=== PATIENT | male | born 1965 | race African-American/Black ===

== ENCOUNTER 2017-08-08 07:27 | Observation (INO) ==
[2017-08-08] MEDS ORDERED: NS 1,000 ML IV ONE (07:38)
--- NOTE | 2017-08-08 07:45 | EKG Report ---
Test Performed on : 08/08/2017 07:27:58 AM Test Reason : AMS Blood Pressure : / mmHG Vent. Rate : 057 BPM Atrial Rate : 057 BPM P-R Int : 182 ms QRS Dur : 082 ms QT Int : 426 ms P-R-T Axes : 066 -06 023 degrees QTc Int : 414 ms Sinus bradycardia. Otherwise normal ECG When compared with ECG of 16-APR-2012 18:51, Vent. rate has decreased BY 28 BPM Unconfirmed Result
[2017-08-08 07:53] LABS: MANUAL DIFF NEEDED? NO
--- NOTE | 2017-08-08 07:57 | Diag Imaging Result Doc PS360 ---
EXAM: CT HEAD W/O CONTRAST HISTORY: AMS TECHNIQUE: CT of the head without contrast with dose reduction (clarity.) COMMENT: There is no evidence of bleed, mass effect, abnormal extra-axial fluid collection, hydrocephalus or acute bony abnormality. The visualized paranasal sinuses are clear. There is persistence of the cava and septum pellucidum. IMPRESSION: No evidence of acute intracranial disease. Electronically signed by Onesimo Barrera 08/08/2017 7:55 AM
[2017-08-08 08:00] LABS: BASO% 0.2 % (0.0-0.8); EOS# 0.09 X1000 (0.0-0.7); EOS% 1.5 % (0.0-10.0); HEMATOCRIT 41.4 % (42.0-52.0); HEMOGLOBIN 13.2 g/dL (14.0-18.0); LYMPH# 1.88 X1000 (1.2-3.4); LYMPH% 31.3 % (20.5-51.1); MCH 26.9 PG (27-31); MCHC 31.9 g/dL (33-37); MCV 84.3 FL (81-99); MONO# 0.38 X1000 (0.11-0.59); MONO% 6.3 % (1.7-9.3); MPV 10.6 FL (7.4-10.4); NEUT% 60.7 % (42.2-75.2); PLT 181 X1000 (130-400); RBC 4.91 XMIL (4.7-6.1)
--- NOTE | 2017-08-08 08:01 | PROVIDER DOCUMENTATION ---
HPI-Neurological Disorder - General Chief Complaint: Stroke-Like Symptoms Stated Complaint: WEAKNESS ONSET THIS MORNING Time Seen by Provider: 08/08/17 07:37 Source: patient, family Allergies/Adverse Reactions: Patient Allergies Allergy/AdvReac Type Severity Reaction Status Date / Time No Known Allergies Allergy Verified 08/08/17 07:34 Home Medications: Home Medication List Medication Instructions Recorded Confirmed Last Taken Type NK [No Home Medications] 08/08/17 08/08/17 Unknown History - History of Present Illness-Neuro Nature of Presenting Problem: Pt was brought into ER by his because pt could not stand up from his bed and felt to floor when he was getting up to be ready to go to work. Reports R leg weakness and it caused fall. Also reports R sided ESTRADA and R side blurry vision. Denies CP/LOC/slurry speech/confusion/RUE weakness. Pt's reports that he needed assistance to walk to the car. Pt was last seen normal by his was 24 hours ago - because they work different shifts. Pt reports he was normal till 9PM last night when he went to bed. reports he has h/o HTN, but he does not take his BOP meds. Headache Location: reports: temporal, parietal (on R side) Onset/Duration: reports: last night Timing: reports: still present Context: reports: other (See above) Approximate time patient was last seen normal?: 07:00 (24 hours ago) Character of Altered Mental Status: reports: agitated, other (Pt has some attitude when interviewed) Any recent trauma/injury?: reports: none Character of Deficits: reports: new weakness, vision problem/glaucoma, decreased ability to stand, decreased ability to walk, falling. denies: altered sensation, impaired speech, impaired swallowing New weakness or altered sensation location:: reports: RLE. denies: RUE, LUE, right facial, left facial, ascending Cognitive Baseline: alert, oriented x3 Gait Baseline: walks without assistance Associated Symptoms: reports: trouble walking, vision changes, weakness (RLe). denies: fainting, dizziness, confusion, chest pain, nausea, numbness in legs/ feet, paresthesia, seizures, slurred speech Similar Symptoms Previously?: No Recently seen or treated by another doctor?: No Review of Systems - Adult - REVIEW OF SYSTEMS - ADULT Constitutional: reports: no symptoms reported. denies: chills, fever, fatique Eyes: reports: see HPI, blurred vision Ears, Nose, Mouth & Throat: reports: no symptoms reported Cardiovascular: reports: no symptoms reported. denies: chest pain Respiratory: reports: no symptoms reported. denies: chronic cough, cough, shortness of breath Gastrointestinal: reports: no symptoms reported. denies: nausea, vomiting Genitourinary: reports: no symptoms reported Musculoskeletal: reports: no symptoms reported Integumentary: reports: no symptoms reported Neurological: reports: see HPI, headache/migraines, loss of balance. denies: ataxia, dizziness/vertigo, numbness, paresthesia, seizure, slurred speech, syncope, tremors Psychiatric: reports: no symptoms reported Endocrine: reports: no symptoms reported Hematologic/Lymphatic: reports: no symptoms reported Allergic/Immunologic: reports: no symptoms reported All Other Systems: Reviewed and Negative Past History - Adult - PAST MEDICAL HISTORY-ADULT Review of Records: reports: Old Records Reviewed, Nursing Assessment Review, Medications Reviewed, Social history reviewed & non-contributory. Major Childhood Illnesses: reports: denies history Cardiovascular: reports: denies history Respiratory: reports: denies history Gastrointestinal: reports: denies history Obstetrical/Gynecological: reports: denies history Genitourinary: reports: denies history Musculoskeletal: reports: denies history Neurological: reports: denies history Endocrine/Immune: reports: denies history Other Conditions: reports: denies history - PRIOR SURGERIES/PROCEDURES Surgical/Procedure History: reports: reviewed, not pertinent - PRIOR HOSPITALIZATIONS Prior Hospitalizations: reports: for other non-related - IMMUNIZATION STATUS Childhood Immunizations: See Nurse Assessment Flu Vaccine: See Nurse Assessment - FAMILY HISTORY Family History: reviewed, not pertinent - SOCIAL HISTORY Smoking: denies Substance Use: none/never, alcohol Physical Exam- Neurological - Physical Exam-Neuro Initial Vital Signs Reviewed: Yes General Appearance: alert, no apparent distress, other (Agitated) Eye Exam: bilateral eye: PERRL (B/l pinpoint pupils), EOMI HENMT: normocephalic/atraumatic, moist mucous membranes Head Injury: no evidence of injury. negative: contusions, ecchymosis, raccoon eyes, swelling Neck: non-tender, full range of motion, supple Respiratory: chest non-tender, lungs clear, normal breath sounds, no pleuratic chest pain, no respiratory distress, no accessory muscle use Cardiovascular: normal peripheral pulses, regular rate, rhythm, no edema, no gallop, no JVD Abdominal Exam: normal bowel sounds, non tender, soft, no organomegaly, no pulsatile mass. negative: distended, guarding, rigid, McBurney's point tenderness Extremity: normal range of motion, non-tender, normal gait, normal inspection patient appointment coordinator Exam: normal hearing, normal speech, PERRL, abnormal eye position Coordination/Gait: normal finger to nose, negative Romberg's sign, abnormal gait . negative: ABN nose to finger (R), ABN nose to finger (L) Motor/Sensory: no sensory deficit, no pronator drift, weak motor strength RLE. negative: negative Babinski's sign, positive Babinski's sign, pronator drift (R) , pronator drift (L), sensory deficit, weak motor strength RUE, weak motor strength LUE, weak motor strength LLE Neurologic: grossly normal, motor weakness (See above, pt can lift his R leg out of bed slowly, but is much slower and weaker then L side. No RUE weakness noticed.) Integumentary: normal color, normal turgor, warm/dry Psych/Mental Status: normal mood/affect, normal thought content, normal thought process, oriented x 3 - Glascow Coma Scale Best Eye Response: (4) open spontaneously Best Verbal Response: (5) oriented Best Motor Response: (6) obeys commands Total Glascow Score: 15 Progress - PLAN OF CARE/RESULTS Progress/Plan/Lab Results: Vital Signs - 8 hr 08/08/17 07:29 Pulse Rate 58 L Respiratory Rate 16 Blood Pressure 154/099 O2 Sat by Pulse Oximetry 98 Laboratory Results - last 24 hr 08/08/17 08/08/17 08/08/17 07:35 07:35 07:35 WBC RBC Hgb Hct MCV MCH MCHC RDW Std Deviation Plt Count MPV Immature Gran % (Auto) Neut % (Auto) Lymph % (Auto) Hardin % (Auto) Eos % (Auto) Baso % (Auto) Immature Gran # (Auto) Neut # (Auto) Lymph # (Auto) Hardin # (Auto) Eos # (Auto) Baso # (Auto) PT INR APTT (Factor Assay) Sodium 135 L Potassium 3.8 Chloride 101 Carbon Dioxide 25 Anion Gap 9 BUN 10 Creatinine 0.9 Estimated GFR/1.73 m2 > 60 BUN/Creatinine Ratio 11 Glucose 113 H Calculated Osmolality 270 Calcium 9.1 Magnesium 1.8 Total Bilirubin 0.30 AST 13 ALT 13 Alkaline Phosphatase 70 Creatine Kinase 200 Troponin T < 0.010 Total Protein 7.3 Albumin 3.9 Globulin 3.0 Albumin/Globulin Ratio 1.0 Plasma/Serum Ethyl Alc 08/08/17 08/08/17 07:35 07:35 WBC 6.01 RBC 4.91 Hgb 13.2 L Hct 41.4 L MCV 84.3 MCH 26.9 L MCHC 31.9 L RDW Std Deviation 12.4 Plt Count 181 MPV 10.6 H Immature Gran % (Auto) 0.0 Neut % (Auto) 60.7 Lymph % (Auto) 31.3 Hardin % (Auto) 6.3 Eos % (Auto) 1.5 Baso % (Auto) 0.2 Immature Gran # (Auto) 0.00 Neut # (Auto) 3.65 Lymph # (Auto) 1.88 Hardin # (Auto) 0.38 Eos # (Auto) 0.09 Baso # (Auto) 0.01 PT 13.4 INR 0.95 APTT (Factor Assay) 31.1 Sodium Potassium Chloride Carbon Dioxide Anion Gap BUN Creatinine Estimated GFR/1.73 m2 BUN/Creatinine Ratio Glucose Calculated Osmolality Calcium Magnesium Total Bilirubin AST ALT Alkaline Phosphatase Creatine Kinase Troponin T Total Protein Albumin Globulin Albumin/Globulin Ratio Plasma/Serum Ethyl Alc Orders Category Date Time Status Cardiac Monitoring DIRECTED Care 08/08/17 07:38 Active Finger Stick Blood Sugar (ED) DIRECTED Care 08/08/17 07:38 Active Saline Loc NOW Care 08/08/17 07:38 Active CHEST-1 VIEW [RAD] Stat Exams 08/08/17 07:[address] HEAD W/O CONTRAST [CT] Stat Exams 08/08/17 07:37 Completed ALCOHOL BLOOD Stat Lab 08/08/17 07:35 Completed CBC WITH ELECTRONIC DIFF [HEME] Stat Lab 08/08/17 07:35 Completed CK PROFILE [SP CHEM] Stat Lab 08/08/17 07:35 Completed COMPREHENSIVE METABOLIC PANEL [CHEM] Stat Lab 08/08/17 07:35 Completed MAGNESIUM [CHEM] Stat Lab 08/08/17 07:[address]IME WITH INR [address] [COAG] Stat Lab 08/08/17 07:[address] [COAG] Stat Lab 08/08/17 07:35 Completed TROPONIN T Stat Lab 08/08/17 07:[address] W/POSS RFLX CULT [URINALYSIS] Stat Lab 08/08/17 07:38 Uncollected URINE DRUG SCREEN PL Stat Lab 08/08/17 07:38 Uncollected 0.9% Sodium Chloride Inj [Ns] 1,000 ml Med 08/08/17 07:38 Active IV 150 mls/hr Hydrocodone/APAP 7.5 mg/325 mg [Derry-7.5] Med 08/08/17 08:12 Discontinued 1 each PO NOW ONE Ondansetron [Zofran] Med 08/08/17 08:13 Discontinued 4 mg IV NOW ONE Pulse Oximetry Stat Oth 08/08/17 07:38 Active EKG [EKG] Stat Ther 08/08/17 07:38 Draft Result Diagrams: 08/08/17 07:35 08/08/17 07:35 - REASSESSMENT Reassessment #1 Time Reassessed: 08:13 Status: other (Pt was re-evaluated. He crossed his RLE on top of his LLE when I walked into his room. Pt can move b/l LE equally. It sounded to me that the weakness resolved. Pt c/o ESTRADA. PO Derry given. Noticed JC=800d/90s w/o intervention.) - EKG 1 EKG Interpretation (*Must complete 3 of following elements*): Normal Rate: 57 Haslet: normal QRS: normal HI Interval: normal ST Wave: normal - XRAY 1 XRAY Study: Chest Impression: Normal - CT/MRI 1 CT Study: Head Impression: Normal - CONSULTS/PCP/HOSPITALIST Notification #1 *Consult/PCP/Hospitalist*: Dr. Daniels Time Discussed: 09:37 Consult Disposition: Will see in ED, Admit Departure - Departure Date of Disposition Decision: 08/08/17 Time of Disposition Decision: 09:37 DIAGNOSIS: CVA (cerebral vascular accident), Headache Disposition: ADMITTED INPATIENT 09 Certified Medical Emergency: Emergent Condition: Stable Referrals and Follow-Ups: Harvey Anderson MD [Primary Care Provider] - Discharge Education: Migraine Headache, [id number] - Critical Care Note This patient required my direct & personal management of CC.: No Attestation - Physician/ RIN Attestation Patient care was provided by Advanced Practice Provider:: No The physician spent face to face time with patient:: Yes Advanced Practice Provider documentation review:: Supervising physician onsite and consulted in the evaluation and care of this patient. The physician did have a face to face encounter with the patient.
--- NOTE | 2017-08-08 08:02 | Diag Imaging Result Doc PS360 ---
EXAM: CHEST-1 VIEW INDICATION: AMS TECHNIQUE: One view COMPARISON: 10/15/2016 FINDINGS: The lungs are grossly clear. There is no discrete pleural fluid collection or pneumothorax. The cardiomediastinal silhouette and central vasculature are grossly unremarkable accounting for magnification from AP technique. IMPRESSION: No evidence of acute pathology by plain radiograph. Electronically signed by Jason Augustin 08/08/2017 8:00 AM
[2017-08-08] MEDS ORDERED: NORCO-7.5 PO ONE (08:12)
[2017-08-08 08:13] LABS: INR 0.95 (0.86-1.15); PROTIME 13.4 Seconds (12.1-15.5)
[2017-08-08] MEDS ORDERED: ZOFRAN IV ONE (08:13)
[2017-08-08 08:14] LABS: PTT PL 31.1 Seconds (22.6-43.9)
[2017-08-08 08:20] LABS: AGAP 9; ALBUMIN 3.9 g/dL (3.5-5.0); ALKALINE PHOSPHATASE 70 U/L (32-122); BUN 10 mg/dL (8-22); CALCIUM 9.1 mg/dL (8.8-10.2); CHLORIDE 101 mmol/L (98-107); CK PROFILE 200 U/L (24-204); COSMO 270; GOT 13 U/L (10-34); GPT 13 U/L (10-44); MAGNESIUM 1.8 mg/dL (1.5-2.7); POTASSIUM 3.8 mmol/L (3.5-5.1); SODIUM 135 mmol/L (136-145); TCO2 25 mmol/L (25-35); TOTAL PROTEIN 7.3 g/dL (6.3-8.3)
--- NOTE | 2017-08-08 09:30 | ED EKG INTERP ---
This chart was entered by Emani Ford Scribe, acting as scribe for Tara Youssef MD. EKG Interpretation - EKG Time of EKG reading by physician:: 07:27 EKG Read and Signed by:: Tara Youssef EKG Interpretation (*Must complete 3 of following elements*): Abnormal Rate: 57 Rhythm: sinus bradycardia Comments: otherwise normal ECG Attestation - Physician/ RIN Attestation Patient care was provided by Advanced Practice Provider:: No The physician spent face to face time with patient:: Yes Advanced Practice Provider documentation review:: Supervising physician onsite and consulted in the evaluation and care of this patient. The physician did have a face to face encounter with the patient. This chart was documented by the indicated scribe, (Emani Ford Scribe) and accurately reflects the services I performed and decisions made by me, Tara Youssef MD, as attested by the provider's signature.
[2017-08-08 10:00] LABS: URINE CULTURE PL NEEDED? NO
[2017-08-08 10:05] LABS: BILIRUBIN URINE NEGATIVE (NEGATIVE); BLOOD URINE NEGATIVE (NEGATIVE); CLARITY CLEAR (CLEAR); COLOR YELLOW; GLUCOSE URINE NEGATIVE (NEGATIVE); LEUKOCYTES URINE NEGATIVE (NEGATIVE); NITRITE URINE NEGATIVE (NEGATIVE); PROTEIN URINE NEGATIVE (NEGATIVE); SP GRAVITY URINE 1.015; UROBILINOGEN URINE NORMAL
[2017-08-08 10:07] LABS: UR AMPHETAMINES QUAL NONE DETECTED (NONE DETECT); UR BARBITUATES QUAL NONE DETECTED (NONE DETECT); UR BENZODIAZEPIN QUAL NONE DETECTED (NONE DETECT); UR CANNABINOIDS QUAL NONE DETECTED (NONE DETECT); UR COCAINE QUAL NONE DETECTED (NONE DETECT); UR MDMA QUAL NONE DETECTED (NONE DETECT); UR METHADONE QUAL NONE DETECTED (NONE DETECT); UR METHAMPHETAMINE QUAL NONE DETECTED (NONE DETECT); UR OPIATES QUAL NONE DETECTED (NONE DETECT); UR OXYCODONE QUAL NONE DETECTED (NONE DETECT); UR PCP QUAL NONE DETECTED (NONE DETECT); UR TCA QUAL NONE DETECTED (NONE DETECT)
[2017-08-08 10:25] LABS: URINE EPITHELIAL CELLS <10 /HPF (<10); URINE SOURCE CLEAN CATCH
--- NOTE | 2017-08-08 11:29 | Diag Imaging Result Doc PS360 ---
EXAM: MRA BRAIN W/O CONTRAST HISTORY: CVA TECHNIQUE: MRA 3-D [id number] COMMENT: The P1 segment of the right posterior cerebral artery is very tenuous in appearance and the majority of the flow to the more distal portions of the posterior cerebral is carried by the posterior communicating artery. The left posterior communicating artery is also demonstrated. There is no evidence of aneurysm or major branch occlusion otherwise. IMPRESSION: No evidence of aneurysm or major branch occlusion. Electronically signed by Onesimo Barrera 08/08/2017 11:27 AM
--- NOTE | 2017-08-08 11:32 | Diag Imaging Result Doc PS360 ---
EXAM: MRI BRAIN W W/O CONTRAST HISTORY: CVA TECHNIQUE: MRI of the brain with and without gadolinium; T1 sagittal, T2 sagittal, DWI, T2, and flair axial, T1 axial and T1 post gadolinium 3-D FSPGR axial with coronal reformation, gradient echo coronal. COMMENT: There is no evidence of mass effect, bleed, abnormal extra-axial fluid collection, or hydrocephalus. There is persistence of the cava and septum pellucidum. There is no evidence of restricted diffusion. There is no evidence of abnormal gadolinium enhancement. IMPRESSION: Normal MRI of the brain. Electronically signed by Onesimo Barrera 08/08/2017 11:30 AM
[2017-08-08] MEDS ORDERED: BENADRYL IV ONE (17:43)
[2017-08-08] MEDS ORDERED: BENADRYL ONE (17:47)
[2017-08-08] MEDS ORDERED: TYLENOL PO PRN (18:21)
[2017-08-08] MEDS ORDERED: ZOFRAN IV PRN (18:21)
[2017-08-08] MEDS ORDERED: APRESOLINE IV PRN (18:22)
--- NOTE | 2017-08-08 19:20 | Diag Imaging Result Doc PS360 ---
CT HEAD W/O CONTRAST - 08/08/2017 INDICATION: stroke symptoms TECHNIQUE: A CT dose reduction protocol was used. COMPARISON: Head CT 11 hours ago. Brain MRI and angiogram 8 hours ago. FINDINGS: The ventricles and sulci are normal in size and contour. No intracranial mass or hemorrhage. The skull is intact. The sinuses mastoids and middle ears are clear. IMPRESSION: No change from the prior exams earlier today. Electronically signed by Hernandez Dunbar 08/08/2017 7:18 PM
[2017-08-08] MEDS ORDERED: NICODERM PATCH TD ONE (19:44)
[2017-08-08] MEDS: CATAPRES PO SCH (20:05)
[2017-08-08] MEDS: NS 1,000 ML IV SCH (23:08)
--- NOTE | 2017-08-09 06:32 | HISTORY AND PHYSICAL ---
CHIEF COMPLAINT: Confusion. HISTORY OF PRESENT ILLNESS: The patient is a 51-year-old male, who has a known history of high blood pressure. Unfortunately, he does admit that at least 2 years ago he stopped taking his blood pressure medicine because he thought that his blood pressure was controlled. He has not checked his blood pressure since and has not seen anyone about it. Denies any symptoms, chest pain, palpitations. Denies any neurologic symptoms prior to this morning. Upon awakening this morning, he was confused, sluggish speech, slightly disoriented. He was dizzy. His family noted that he was having trouble standing, they thought due to weakness. PAST MEDICAL HISTORY: High blood pressure. SOCIAL HISTORY: Patient is . He does not smoke. Denies alcohol. FAMILY HISTORY: Positive for high blood pressure. REVIEW OF SYSTEMS: Positive for contusion, blurred vision. States he has weakness in his extremities, preventing him walking. Denies any constipation, melena, or hematochezia. Denies any dysuria, frequency, urgency. Denies polyuria or polydipsia. Denies any weight loss. OBJECTIVE: Vital Signs: Reviewed. Blood pressure 156/70 to 190/90. Pulse 70s, respiratory 18- 22. The patient is afebrile. General: Patient is awake, alert. Currently in no respiratory distress. Lying flat in the bed. HEENT: Normocephalic, atraumatic. Pupils equal, round, reactive. The oropharynx clear. Tongue thrusts normal. Neck: Supple. No jugular venous distention. Cardiovascular: Regular rate. No appreciable murmurs. Chest: Clear. Nonlabored. Abdomen: Soft, obese. Extremities: No clubbing, cyanosis, or edema. Neurologic: Patient is awake, alert, and oriented currently. He is noted to have a slightly outward appearing rightward gaze, but this is correctable and will look easily to his left. He has no focal deficits in his extremities. Bilateral lower extremities 5/5 hip flexors. Dorsiflexion and plantar flexion of his feet. When initially tested, he had some greatly decreased dust collector strength on the right, but after distraction and rechecking his dust collector strength was equal bilaterally and 5/5. Patient is noted to do lots of blinking and lip smacking. He is; however, able to smile normally. Tongue thrust is normal. Uvula was midline. He is able to open and close his eyes without any deficit or any difficulty. LABORATORIES: CBC and CMP essentially normal. CT of the head is negative. MRI is negative. MRA is negative. ASSESSMENT: 1. Hypertension, poorly controlled due to intentionally not taking his medication. 2. Acute neurologic event which appears to be more dystonic in reaction. Patient did eventually admit taking a sleeping pill. His notes 2 or 3; however, neither of them are forthcoming in what type of sleeping pill or where he obtained this. PLAN: I certainly do not feel as though patient is having an acute stroke given a negative CT, negative MRI, and negative MRA. His blood pressures are elevated and these certainly need to be controlled. Given that he is not having a stroke, we will started clonidine to control blood pressure, as they believe this is what he was on in the past. We spoke with Dr. Dennison on the phone, who asked us to try Benadryl to see if this was a true dystonic reaction. The family; however, was adamant that he be transferred to [place] because they seem somewhat intense that I am since the I am telling him he has not had a stroke with a negative CT, MRI, and MRA. Did talk to Dr. Everett, Neurology in [place], who also agreed given description of his symptoms and negative testing that he has not had a stroke and therefore he did not need to be transferred to Neurology. We spoke with who graciously agreed to accept the transfer. Patient therefore will be transferred to [place] for further testing. cc: Jose Daniels MD
[2017-08-09] MEDS: CATAPRES PO SCH (08:38)
[2017-08-09 12:04] VITALS: BP 121/77
[2017-08-09] MEDS: NS 1,000 ML IV SCH (12:40)
--- NOTE | 2017-08-10 14:31 | DISCHARGE SUMMARY ---
ADMISSION DATE: 08/08/2017 DISCHARGE DATE: 08/09/2017 DIAGNOSES: 1. Hypertension. Poorly controlled due to intentionally not taking his medication. 2. Acute neurologic event. 3. Horizontal diplopia in the right eye. 4. Right facial numbness. DIAGNOSTIC: 1. On 08/08/2017 CT of the head revealed no evidence of bleed, mass effect, abnormal extra-axial fluid collection, hydrocephalus or acute bony abnormality. No evidence of acute intracranial disease. 2. Brain MRA revealed no evidence of aneurysm or major branch occlusion. 3. Brain MRI revealed normal MRI of the brain. 4. Repeat CT of the head revealed no change from prior exams earlier today. HOSPITAL COURSE: Mr. Kumar presented to the emergency room with high blood pressure, confusion, slurred speech, disorientation and horizontal diplopia to his right eye. He did awake with these symptoms. He denied any injury or any prior episodes similar to this. Family members stated that the patient could not stand up. When he attempted to hold his weight up he fell to the floor, saying that his right leg would not work. He was last seen normal about 24 hours prior due to them working different shifts. He does have a history of hypertension, stopping his medications 2 years ago because he felt his blood pressure was controlled and medicine was not needed. On arrival he did have blood pressures in the 150s to 160s over 90s. In light of his negative CT scan we allowed for permissive hypertension and pressures did stay form the 130s to 160s over 70s to 90s throughout the night. The patient denied any injury over the last 2 weeks, any falls, any alcohol or illicit drug use. He did state that he had borrowed some sleeping medicine from a friend and he had in fact taken 1 the night before coming into the emergency room. He is unsure the name but he and the feel that it is 175 mg. They have been encouraged to bring the medication in. It was felt that part of this was a dystonic reaction to the medication as he exhibited lip smacking, blinking and chewing. He was given Benadryl IV with resolution of these symptoms. Horizontal diplopia remains unchanged. PHYSICAL EXAMINATION: On exam Mr. Kumar does have some hesitation in speech as well as some slurred words. He is able to be understood as long as he is talking slow. He does follow commands. HEENT: Head is normocephalic, atraumatic. Pupils are equal, round, react to light. EOMs are intact. Sclerae are anicteric. Mucous membranes are moist. He has no nystagmus. Cardiovascular: Regular rate and rhythm. S1 and S2 are appreciated. Pulmonary : Breath sounds are clear with no increased work of breathing noted. Chest does rise and fall symmetrically with respiration. Gastrointestinal: Abdomen is soft, nontender, nondistended with bowel sounds in all 4 quadrants. Back: No CVAT. No spine tenderness. Musculoskeletal: He has good range of motion to joints. He does have 5/5 strength x4. Extremities: No clubbing, cyanosis, or edema. Calves nontender. Pulses are palpable x4. Neurologic: He is alert and oriented x3. Pupils are 1-2 mm, equal, round, react to light. EOMs are intact. He has no drifting gaze. Forehead is spared. Equal nasal flaring. No facial drooping. No tongue or uvula deviation. He did swallow liquids with no difficulty. Equal shoulder shrug. He has no plantar drift. He had. He has no plantar drift. Mother Helper are strong and equal with 5/5 strength. His finger to nose is 5/5 bilateral although he is very slow on the right due to diplopia. He has 5/5 strength to his lower extremities. Heel, knee, the kam is 5/5 bilateral. LABS: Urine drug screen was negative. Blood alcohol was none detected. DISCHARGE MEDICATION: Clonidine 0.1 p.o. b.i.d., hydralazine 10 mg IV q.4 hours p.r.n., Zofran 4 mg IV p.r.n., normal saline at 75 an hour. Mr. Kumar is being transferred to [facility] for neurology evaluation and further care via EMS transport. He is in stable condition. His is at his bedside. TIME SPENT: This is a greater than 30 minute discharge. Dictated by HERNANDEZ Sanchez for Jose Daniels MD cc: HERNANDEZ Sanchez MD [facility]
== END 2017-08-09 13:11 | disposition short-term general hospital (02) ==
LOC: P.MEDSURG 07:27 → P.ED 07:27
PROVIDERS: ATTEND Family Medicine